=== PATIENT | female | born 1960 | race Caucasian/White ===

== ENCOUNTER 2018-03-31 15:55 | Outpatient (CLI) | payer OTHER | END 2018-03-31 15:56 | disposition home or self-care (01) | LOC: BICMAMMO 15:55 | PROVIDERS: ATTEND Obstetrics & Gynecology | DX: Z12.31 Encounter for screening mammogram for malignant neoplasm of breast (principal) | CPT/HCPCS: 77063; 77067 ==

== ENCOUNTER 2018-07-15 08:51 | Outpatient (CLI) | payer OTHER ==
--- NOTE | 2018-07-15 10:53 | ULT ---
THYROID ULTRASOUND: DATE: 07/15/2018. COMPARISON: 04/26/2017. HISTORY: Reevaluate thyroid nodules. History of multinodular goiter. TECHNIQUE: Multiplanar, farr scale, sonographic imaging of the thyroid gland is obtained. Thyroid isthmus measures 7 mm in AP dimension. Right lobe measures 5.6 x 2.1 x 2.7 cm and the left l obe measures 4.7 x 1.9 x 2.0 cm. There are numerous nodules seen throughout both lobes of the thyroid gland. There are at least 7 nodules noted within the right lobe, all of which are heterogeneously hypoechoic . This includes 3 relatively dominant nodules measuring up to 1.6 cm, 1.6 cm, and 2.0 cm respectivel y. Allowing for differences in technique, there has been no significant appreciable interval change w hen compared to the prior examination with respect to the numerous right-sided thyroid nodules. There are at least 4 nodules noted within the left lobe, including 2 nodules which measure up to 1.3 cm, 1 in the mid left thyroid lobe and 1 in the inferior aspect of the left thyroid lobe. The nodule s within the left lobe are heterogeneously hypoechoic and have similar sonographic characteristics to the nodules on the right. IMPRESSION: Numerous bilateral stable thyroid nodules are noted throughout the right and left lobe of the thyroid gland as detailed above. POS: [facility]
== END 2018-07-15 08:52 | disposition home or self-care (01) ==
LOC: SCSULT 08:51
DX: E04.1 Nontoxic single thyroid nodule (principal); E04.2 Nontoxic multinodular goiter
CPT/HCPCS: 76536

== ENCOUNTER 2019-10-20 11:31 | Outpatient (CLI) | payer OTHER ==
--- NOTE | 2019-10-20 13:41 | MMO ---
Bilateral MAMMO Bilat Screen [facility]. CLINICAL HISTORY: Patient is 59 years old and is seen for screening. The patient has no family history of breast cancer. The patient has no personal history of cancer. VIEWS: The views performed were: bilateral craniocaudal with tomosynthesis and bilateral mediolateral oblique with tomosynthesis. FILMS COMPARED: The present examination has been compared to prior imaging studies performed at [facility] on 09/25/2016, 03/24/2017 and 03/31/2018, and at [facility] on 11/13/2015. This study has been interpreted with the assistance of computer-aided detection. MAMMOGRAM FINDINGS: The breasts are heterogeneously dense, which could obscure a lesion on mammography. Benign calcifications are noted bilaterally. There are no suspicious masses, suspicious calcifications, or new areas of architectural distortion. IMPRESSION: THERE IS NO MAMMOGRAPHIC EVIDENCE OF MALIGNANCY. A ROUTINE FOLLOW-UP MAMMOGRAM IN 1 YEAR IS RECOMMENDED. THE RESULTS OF THIS EXAM WERE SENT TO THE PATIENT. ACR BI-RADS Category 2 - Benign finding MAMMOGRAPHY NOTE: 1. A negative mammogram report should not delay a biopsy if a dominant of clinically suspicious mass is present. 2. Approximately 10% to 15% of breast cancers are not detected by mammography. 3. Adenosis and dense breasts may obscure an underlying neoplasm. Reported by: ELIZABETH CLAY MD Electonically Signed: [id number]
== END 2019-10-20 11:32 | disposition home or self-care (01) ==
LOC: BICMAMMO 11:31
PROVIDERS: ATTEND Obstetrics & Gynecology
DX: Z12.31 Encounter for screening mammogram for malignant neoplasm of breast (principal)
CPT/HCPCS: 77063; 77067